=== PATIENT | female | born 1930 | race Native Hawaiian/Other Pacific Islander ===

== ENCOUNTER 2017-11-11 20:28 | Emergency (ER) | payer MEDICARE, BC ==
[~2017-11-11] VITALS: Ht 152.4 cm; Wt 53.2 kg
[2017-11-11 20:39] VITALS: TEMP 97.9
[2017-11-11 21:14] LABS: BASO # 0.1 (0.0-0.2); BASO % 0.5 % (0.0-2.0); EOS # 0.4 (0.0-0.7); EOS % 3.7 % (0-4.0); GRAN # 8.2 (1.4-6.5); GRAN % 71.2 % (42.2-75.2); HEMATOCRIT 38.5 % (37.0-47.0); LYMPH # 1.9 (1.2-3.4); LYMPH % 16.8 % (20.0-51.0); MEAN CELL VOLUME 66 fl (80.0-100.0); MEAN CORPUSCULAR HEMOGLOBIN 21 pg (27.0-31.0); MEAN CORPUSCULAR HGB CONC 31 g/dl (33.0-37.0); MEAN PLATELET VOLUME 10.9 fl (7.4-10.4); MONO # 0.8 (0.1-0.6); MONO % 7.3 % (1.7-9.3); PLATELET COUNT 295 K/mm3 (130-400); RED BLOOD COUNT 5.84 M/mm3 (4.10-5.30); REDCELL DISTRIBUTION WIDTH-CV 18.1 % (11.5-14.5)
[2017-11-11 21:36] LABS: ALANINE AMINOTRANSFERASE 28 U/L (9-52); ALBUMIN 4.2 gm/dL (3.5-5.0); ALKALINE PHOSPHATASE 85 U/L (50-136); ANION GAP 14 mmol/L (7-16); AST,SGOT 28 U/L (15-37); BILIRUBIN,TOTAL 1.4 mg/dL (0.0-1.0); BLOOD UREA NITROGEN 21 mg/dL (7-17); CALCIUM 10.3 mg/dL (8.4-10.2); CARBON DIOXIDE 23 mmol/L (22-30); CHLORIDE 102 mmol/L (98-107); GLUCOSE 165 mg/dL (74-106); POTASSIUM 3.8 mmol/L (3.4-5.0); SODIUM 139 mmol/L (137-145); TOTAL PROTEIN 8.3 gm/dL (6.4-8.2)
[2017-11-11 21:37] LABS: C-REACTIVE PROTEIN < 0.5 mg/dL (0.0-0.9); ERYTHROCYTE SEDIMENTATION RATE 7 mm/hr (0-30)
[2017-11-11] MEDS ORDERED: TASIGNA150 MG (21:48)
[2017-11-11] MEDS ORDERED: COZAAR100 MG (21:49)
[2017-11-11] MEDS ORDERED: NEURONTIN100 MG/CAP (21:50)
[2017-11-11] MEDS ORDERED: LOPRESSOR100 MG PO (21:50)
[2017-11-11] MEDS ORDERED: SINGULAIR 110 MG/TAB (21:50)
[2017-11-11] MEDS ORDERED: TYLENOL 325MG325 MG PO (21:51)
[2017-11-11] MEDS ORDERED: CENTRUM SILVER1 TAB (21:51)
[2017-11-11 23:32] LABS: COLLECTION METHOD CLEAN CATCH
[2017-11-11 23:43] LABS: MUCOUS Present /lpf; PH 5 (5-8); SQUAMOUS EPITHELIAL None Seen /hpf; URINE APPEARANCE Hazy; URINE BACTERIA Rare /hpf; URINE BILIRUBIN Negative (NEGATIVE); URINE BLOOD 1+ (NEGATIVE); URINE COLOR Yellow; URINE GLUCOSE Negative (NEGATIVE); URINE KETONE Negative (NEGATIVE); URINE LEUKOCYTE ESTERASE Negative (NEGATIVE); URINE NITRATE Positive (NEGATIVE); URINE PROTEIN(semi-quant) 1+ (NEGATIVE); URINE RBC 0-2 /hpf; URINE UROBILINOGEN Negative (NEGATIVE)
[2017-11-11] MEDS ORDERED: NORVASC2.5 MG PO (23:55)
[2017-11-12 00:52] VITALS: BP 170/84; PULSE 54
== END 2017-11-12 00:52 | disposition home or self-care (01) ==
LOC: COL.ER 20:28
PROVIDERS: Emergency Medicine
DX: I10 Essential (primary) hypertension (principal); R51 Headache
CPT/HCPCS: J2270; J2405; J7030

== ENCOUNTER 2020-08-15 13:09 | Outpatient (RCR) | payer MEDICARE, BC ==
[~2020-08-15 13:09] MED LIST: CENTRUM SILVER1 TAB; COZAAR100 MG; LOPRESSOR100 MG PO; NEURONTIN100 MG/CAP; NORVASC2.5 MG PO; SINGULAIR 110 MG/TAB; TASIGNA150 MG; TYLENOL 325MG325 MG PO
[2020-11-14] MEDS ORDERED: NORVASC 5MG5 MG/TAB PO (19:06)
[2020-11-14] MEDS ORDERED: CELEBREX 200MG200 MG PO (19:07)
[2020-11-14] MEDS ORDERED: [UNRECOGNIZED DRUG - OTHER] PO (19:11)
[2020-11-14] MEDS ORDERED: FLONASEALLERGY NS (19:12)
[2020-11-14] MEDS ORDERED: COZAAR100 MG PO (19:12)
[2020-11-14] MEDS ORDERED: TOPROL XL100 MG PO (19:13)
[2020-11-14] MEDS ORDERED: SINGULAIR 110 MG/TAB PO (19:13)
[2020-11-14] MEDS ORDERED: VESICARE 5MG5 MG PO (19:14)
[2020-11-14] MEDS ORDERED: ONE-A-DAY ESSE1 EACH PO (19:14)
[2020-11-14] MEDS ORDERED: ACTONEL 35MG TA35 MG PO (19:14)
[2020-11-19] MEDS ORDERED: ALBUTEROL0.83 MG/ML IH (09:27)
[2020-11-19] MEDS ORDERED: AMOXICILLIN 8751 TAB PO (09:27)
[2020-11-19] MEDS ORDERED: ROXANOL 20MG20 MG/ML SL (09:27)
[2020-11-19] MEDS ORDERED: TYLENOL 325MG325 MG PO (09:28)
[2020-11-19] MEDS ORDERED: ZOFRAN ODT4 MG PO (09:29)
[2020-11-19] MEDS ORDERED: PROTONIX 40MG T40 MG PO (09:29)
[2020-11-19] MEDS ORDERED: ATIVAN 0.50.5 MG/TAB PO (09:29)
[2020-11-19] MEDS ORDERED: MELATIN 3 MG-11 TAB PO (09:30)
== END 2020-11-13 | disposition home or self-care (01) ==
LOC: WSST
DX: R13.13 Dysphagia, pharyngeal phase (principal); R05 Cough

== ENCOUNTER → 2020-08-22 | Outpatient (CLI) | payer MEDICARE, BC | LOC: COL.RAD 14:28 | DX: R13.13 Dysphagia, pharyngeal phase (principal); R05 Cough ==

== ENCOUNTER → 2020-09-27 | Outpatient (CLI) | payer MEDICARE, BC ==
[~2020-09-27] MED LIST changes: +ACTONEL 35MG TA35 MG PO; +ALBUTEROL0.83 MG/ML IH; +AMOXICILLIN 8751 TAB PO; +ATIVAN 0.50.5 MG/TAB PO; +CELEBREX 200MG200 MG PO; +COZAAR100 MG PO; +FLONASEALLERGY NS; +MELATIN 3 MG-11 TAB PO; +NORVASC 5MG5 MG/TAB PO; +ONE-A-DAY ESSE1 EACH PO; +PROTONIX 40MG T40 MG PO; +ROXANOL 20MG20 MG/ML SL; +SINGULAIR 110 MG/TAB PO; +TOPROL XL100 MG PO; +VESICARE 5MG5 MG PO; +ZOFRAN ODT4 MG PO; +[UNRECOGNIZED DRUG - OTHER] PO
== END ==
LOC: COL.RAD 09:00
DX: K22.8 Other specified diseases of esophagus (principal); R13.13 Dysphagia, pharyngeal phase